=== PATIENT | male | born 1975 | race Caucasian/White ===

== ENCOUNTER 2017-08-23 22:28 | Emergency (ER) | payer BC, MEDICARE ==
[~2017-08-23] VITALS: Ht 170.2 cm; Wt 91.0 kg
[~2017-08-23 22:28] MED LIST: BUTA1TAB PO; TOP25T PO
[2017-08-23] MEDS ORDERED: ibuprofen 200mg tablet PO ONE (22:35)
[2017-08-23 23:55] VITALS: BP 116/56
== END 2017-08-23 23:58 | disposition home or self-care (01) ==
LOC: ER 22:29
DX: S90.31XA Contusion of right foot, initial encounter (principal); W22.8XXA Striking against or struck by other objects, initial encounter; Y93.89 Activity, other specified; Y92.89 Other specified places as the place of occurrence of the external cause; Y99.8 Other external cause status
CPT/HCPCS: 73630; 99284